=== PATIENT | male | born 1995 | race Caucasian/White ===

== ENCOUNTER 2018-06-01 22:15 | Emergency (ER) | payer OTHER ==
[~2018-06-01] VITALS: Ht 175.3 cm; Wt 77.1 kg
--- OUTSIDE RECORDS SUMMARY | ~2018-06-01 | XMS | Clinical Summary ---
Demographics + + + | Address | [address] | | | [place] [address] | + + + | Home Phone | | + + + | Preferred Language | Unknown | + + + | Marital Status | Single | + + + | Yazdanism Affiliation | Unknown | + + + | Race | Unknown | + + + | Ethnic Group | Unknown | + + + Author + + + | Author | [facility] | | | and [place] | + + + | Organization | [facility] | | | and [place] | + + + | Address | Unknown | + + + | Phone | Unavailable | + + + Support + + +---------+ + | Name | Relationship | Address | Phone | + + +---------+ + | Юлия Turk | ECON | Unknown | | + + +---------+ + Care Team Providers + +------+ + | Care Bilingual Operator Name | Role | Phone | + +------+ + PP | Unavailable | + +------+ + Allergies Not on File Current Medications Not on file Active Problems Not on file Social History + +-------+ +--------+------+ | Tobacco Use | Types | Packs/Day | Years | Date | | | | | Used | | + +-------+ +--------+------+ | Never Assessed | | | | | + +-------+ +--------+------+ + + + | Sex Assigned at | Date Recorded | | | | + + + | Not on file | | + + + Plan of Treatment + + + + + | Health Maintenance | Due Date | Last Done | Comments | + + + + + | Well Child Check | | | | | | 0 | | | + + + + + | Vaccine: HPV (1 of 3 | | | | | - Male 3-dose | 8 | | | | series) | | | | + + + + + | Vaccine: | | | | | Dtap/Tdap/Td (1 - | 6 | | | | Tdap) | | | | + + + + + | Vaccine: Influenza | | | | | (#1) | 8 | | | + + + + + Results Not on filefrom Last 3 Months"
--- OUTSIDE RECORDS SUMMARY | ~2018-06-01 | XMS | Clinical Summary ---
Demographics + + + | Address | [address] | | | [place] [address] | + + + | Home Phone | | + + + | Preferred Language | Unknown | + + + | Marital Status | Single | + + + | Quaker Affiliation | Unknown | + + + | Race | Unknown | + + + | Ethnic Group | Unknown | + + + Author + + + | Author | [facility] | | | and [place] | + + + | Organization | [facility] | | | [...] Team Providers + +------+ + | Care Sewer Pipe Cleaner Name | Role | Phone | + [...]
[~2018-06-01 22:15] MED LIST: AUGMENTIN 875-1 EACH PO; NORCO 5-325 TA1 EACH PO
[2018-06-01] MEDS ORDERED: ALBUTEROL0.63 MG/3 INH (22:26)
[2018-06-01] MEDS ORDERED: NAPROXEN500 MG PO (23:08)
== END 2018-06-01 23:16 | disposition home or self-care (01) ==
LOC: ED 22:15
DX: S29.011A Strain of muscle and tendon of front wall of thorax, initial encounter (principal); X50.0XXA Overexertion from strenuous movement or load, initial encounter; J45.909 Unspecified asthma, uncomplicated; F17.200 Nicotine dependence, unspecified, uncomplicated; Z79.899 Other long term (current) drug therapy
CPT/HCPCS: 71101; 99283

== ENCOUNTER 2018-11-07 17:31 | Emergency (ER) | payer OTHER ==
[~2018-11-07] VITALS: Ht 175.3 cm; Wt 77.1 kg
[~2018-11-07 17:31] MED LIST changes: +ALBUTEROL0.63 MG/3 INH; +NAPROXEN500 MG PO
[2018-11-07] MEDS ORDERED: AUGMENTIN 875-1 EACH PO (18:35)
== END 2018-11-07 18:35 | disposition home or self-care (01) ==
LOC: ED 17:31
DX: S01.551A Open bite of lip, initial encounter (principal); J45.909 Unspecified asthma, uncomplicated; F17.200 Nicotine dependence, unspecified, uncomplicated; Z23 Encounter for immunization; W54.0XXA Bitten by dog, initial encounter
CPT/HCPCS: 90471; 90715; 99283-25

== ENCOUNTER 2021-06-17 08:02 | Emergency (ER) | payer OTHER ==
[~2021-06-17] VITALS: Ht 180.3 cm; Wt 95.7 kg
[2021-06-17] MEDS ORDERED: HYDROCODON-ACE1 EA10 PO (08:40)
== END 2021-06-17 08:46 | disposition home or self-care (01) ==
LOC: ED 08:02
DX: S42.031A Displaced fracture of lateral end of right clavicle, initial encounter for closed fracture (principal); V00.141A Fall from scooter (nonmotorized), initial encounter; J45.909 Unspecified asthma, uncomplicated; F17.200 Nicotine dependence, unspecified, uncomplicated
CPT/HCPCS: 73000; 73030; 99283-25

== ENCOUNTER 2021-09-29 13:54 | Emergency (ER) | payer OTHER ==
[~2021-09-29] VITALS: Ht 180.3 cm; Wt 95.2 kg
[~2021-09-29 13:54] MED LIST changes: +DICLOFENAC SODI75 MG PO; +HYDROCODON-ACE1 EA10 PO; +HYDROCODON-ACE1 EA11 PO; +IBU800 MG PO; +OXYCODONE HCL5 MG PO; +PERCOCET 5-3251 EACH PO
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
[2021-09-29] MEDS ORDERED: VENTOLIN HFA18 GM INH (14:31)
== END 2021-09-29 14:33 | disposition home or self-care (01) ==
LOC: ED 13:54
DX: B34.9 Viral infection, unspecified (principal); Z20.822 Contact with and (suspected) exposure to COVID-19; J45.909 Unspecified asthma, uncomplicated; F17.200 Nicotine dependence, unspecified, uncomplicated; Z88.5 Allergy status to narcotic agent; Z79.899 Other long term (current) drug therapy
CPT/HCPCS: 99283; C9803; U0003